=== PATIENT | female | born 1970 | race Caucasian/White ===

== ENCOUNTER 2024-04-02 10:30 | Emergency (ER) | payer BC ==
[2024-04-02] MEDS: fentaNYL 100 MCG/2 ML SDV IM ONE (12:18)
[2024-04-02] MEDS: HYDROmorphone 1 MG/ML Syringe IM ONE (13:46)
== END 2024-04-02 14:06 | disposition home or self-care (01) ==
LOC: JP.ED 10:30
DX: S82.832A Other fracture of upper and lower end of left fibula, initial encounter for closed fracture (principal); E66.9 Obesity, unspecified; Z68.41 Body mass index [BMI] 40.0-44.9, adult; Z98.84 Bariatric surgery status; Z90.710 Acquired absence of both cervix and uterus; Z79.890 Hormone replacement therapy; Z88.0 Allergy status to penicillin; Z79.899 Other long term (current) drug therapy; X58.XXXA Exposure to other specified factors, initial encounter
CPT/HCPCS: 73610; 96372; 99283; J1171; J3010